=== PATIENT | female | born 1970 ===

== ENCOUNTER 2017-07-20 07:22 | Day surgery (SDC) | payer OTHER ==
[~2017-07-20 07:22] MED LIST: CITRANATAL B-C1 EAC1 PO; DEPO-MEDROL40 MG/ML IJ; GABAPENTIN100 MG PO; METHOCARBAMOL500 MG PO; PROVENTIL S1 ML/5 MG; SINGULAIR4 MG
== END 2017-07-20 12:04 | disposition home or self-care (01) ==
LOC: AMB-ENDOS 07:22
DX: D12.3 Benign neoplasm of transverse colon (principal)

== ENCOUNTER 2018-10-18 10:23 | Outpatient (CLI) | payer OTHER | END 2018-10-18 17:00 | disposition home or self-care (01) | LOC: MRI 10:23 | DX: R51 Headache (principal) | CPT/HCPCS: 70551 ==

== ENCOUNTER 2024-04-06 05:43 | Day surgery (SDC) | payer OTHER ==
[2024-03-31 10:08] LABS: HEMATOCRIT 36.3 % (36.0-45.00); HEMOGLOBIN 12.3 g/dL (12.0-15.00); MEAN CELL VOLUME 95.2 fL (80.00-100.00); MEAN CORPUSCULAR HEMOGLOBIN 32.3 pg (27.00-32.0); MEAN CORPUSCULAR HGB CONC 33.9 g/dl (32.0-36.0); PLATELET COUNT 241 K/uL (150-450); RED BLOOD COUNT 3.81 M/uL (4.00-6.00); RED CELL DISTRIBUTION WIDTH 13.7 % (11.5-14.5)
[2024-03-31 10:40] LABS: INR 0.97; PARTIAL THROMBOPLASTIN TIME 30.4 SECONDS (22.0-34.0); PROTHROMBIN TIME 10.6 SECONDS (9.0-11.5); URINE APPEARANCE Cloudy; URINE BILIRRUBIN Negative (NEGATIVE); URINE BLOOD Negative; URINE COLOR Yellow; URINE GLUCOSE Negative (NEGATIVE); URINE KETONE Negative (NEGATIVE); URINE LEUKOCYTE Negative; URINE NITRATE Negative; URINE PROTEIN Negative (NEGATIVE); URINE UROBILINOGEN 0.2 E.U./dl
[2024-03-31 10:42] LABS: URINE BACTERIA 487.4 uL (0.0-1933); URINE EPITHELIAL CELLS 7.2 uL (0.0-38.8); URINE RBC 6.4 uL (0.0-20.8); URINE WBC 2.6 uL (0.0-23.2)
[2024-03-31 10:49] LABS: CALCIUM 9.2 mg/dL (8.5-10.1); CREATININE SERUM 0.64 mg/dL (0.55-1.02); GFR 97.07; POTASSIUM 3.92 mEq/L (3.5-5.1)
[2024-03-31 10:54] LABS: URINE CAST 0.15 uL (0.0-1.40)
[2024-04-06] MEDS ORDERED: CLINDAMYCIN PHOSPHATE 150 MG/ML (900mg) IV ONE (10:45)
[2024-04-06] MEDS ORDERED: LIDOCAINE HCL 2% 20ML VIAL IJ ONE (10:45)
== END 2024-04-06 11:40 | disposition home or self-care (01) ==
LOC: CIR.AMB 05:43
PROVIDERS: ATTEND Surgery Surgery of the Hand
DX: M65.841 Other synovitis and tenosynovitis, right hand (principal); Z88.0 Allergy status to penicillin; K29.70 Gastritis, unspecified, without bleeding; H52.10 Myopia, unspecified eye; H52.209 Unspecified astigmatism, unspecified eye